=== PATIENT | female | born 1995 | race Caucasian/White ===

== ENCOUNTER 2016-09-07 13:43 | Emergency (ER) | payer BC ==
[2016-09-07 14:48] VITALS: BP 126/63
[2016-09-07] MEDS ORDERED: Ondansetron ODT TAB* 4 MG PO ONE (15:26)
--- NOTE | 2016-09-07 15:32 | UC ---
UC General HPI - HPI Summary HPI Summary: nausea and vomiting this morning. also has some sinus congestion. - History of Current Complaint Chief Complaint: UCRespiratory Stated Complaint: COUGH, NAUSEA Time Seen by Provider: 09/07/16 15:01 Hx Obtained From: Patient Onset/Duration: Sudden Onset, Lasting Hours Timing: Constant Onset Severity: Moderate Current Severity: Mild Pain Intensity: 3 - Allergy/Home Medications Allergies/Adverse Reactions: Allergies Allergy/AdvReac Type Severity Reaction Status Date / Time seasonal Allergy Eyes Uncoded 09/07/16 14:49 Itchy/Swollen/Red/Watery Home Medications: Home Medications diPHENhydraMINE PO* [Benadryl PO*] 50 mg PO BEDTIME PRN 09/07/16 [History Confirmed 09/07/16] PMH/Surg Hx/FS Hx/Imm Hx Previously Healthy: Yes Respiratory History Of: Reports: Asthma - Surgical History Surgical History: None - Family History Known Family History: Positive: Diabetes, Respiratory Disease - Social History Alcohol Use: Occasionally Substance Use Type: None Smoking Status (MU): Never Smoked Tobacco Review of Systems Constitutional: Chills Skin: Negative Eyes: Negative ENT: Nasal Discharge Respiratory: Negative Cardiovascular: Negative Gastrointestinal: Vomiting Genitourinary: Negative Motor: Negative Neurovascular: Negative Musculoskeletal: Negative Neurological: Negative Psychological: Negative All Other Systems Reviewed And Are Negative: Yes Physical Exam Triage Information Reviewed: Yes Appearance: No Pain Distress, Well-Nourished, Ill-Appearing Vital Signs: Initial Vital Signs Temp 98.1 F 09/07/16 14:43 Pulse 82 09/07/16 14:43 Resp 24 09/07/16 14:43 BP 126/63 09/07/16 14:43 Pulse Ox 100 09/07/16 14:43 Vital Signs Reviewed: Yes Eye Exam: Normal Eyes: Positive: Conjunctiva Clear ENT Exam: Normal ENT: Positive: Pharynx normal, Nasal congestion, TM bulging, Muffled/hoarse voice Dental Exam: Normal Neck exam: Normal Neck: Positive: Supple, Nontender, No Lymphadenopathy Respiratory Exam: Normal Respiratory: Positive: Chest non-tender, Lungs clear, Normal breath sounds Cardiovascular Exam: Normal Cardiovascular: Positive: RRR, No Murmur, Pulses Normal Abdominal Exam: Normal Abdomen Description: Positive: Nontender, No Organomegaly, Soft Bowel Sounds: Positive: Present Musculoskeletal Exam: Normal Musculoskeletal: Positive: Strength Intact, ROM Intact, No Edema Neurological Exam: Normal Neurological: Positive: Alert, Muscle Tone Normal Psychological Exam: Normal Skin Exam: Normal Course/Dx - Course Course Of Treatment: hx obtained, exam performed, zofran administered an prescribed. neg flu swab. - Differential Dx - Multi-Symptom Provider Diagnoses: nausea/vomiting. sinus congestion Discharge - Discharge Plan Condition: Stable Disposition: HOME Prescriptions: Ondansetron [Zofran Odt] 4 mg PO Q6H #28 tab Patient Education Materials: Acute Nausea and Vomiting (ED) Referrals: Non Staff,Doctor [Primary Care Provider] - Additional Instructions: take the zofran as needed. increase your fluid intake and get plenty of rest. I recommend claritin D or pseudofed to help with the head congestion.
== END 2016-09-07 15:48 | disposition home or self-care (01) ==
LOC: UCCORT 13:43
DX: R11.2 Nausea with vomiting, unspecified (principal); R09.81 Nasal congestion
CPT/HCPCS: 87502; 99212; A9270-GY; G0463

== ENCOUNTER → 2017-12-11 12:36 | Emergency (ER) | payer SELFPAY ==
[~2017-12-11 12:36] MED LIST: PPD test dose* 5 TU/0.1 ML TEST (*USE PPD ORDER SET*) ONE
== END | disposition home or self-care (01) ==
LOC: OHCORT 12:36
DX: R76.11 Nonspecific reaction to tuberculin skin test without active tuberculosis (principal)